=== PATIENT | female | born 1930 | race Asian ===

== ENCOUNTER 2016-07-13 23:29 | Inpatient (IN) | payer OTHER, MEDICAID ==
[~2016-07-13] VITALS: Ht 162.6 cm; Wt 61.2 kg
[2016-07-13 23:37] VITALS: BP 120/68; PULSE 76; RESP 18; TEMP 98.3; O2SAT 98
[2016-07-13] MEDS ORDERED: NACL 0.9% 1,000 ML IV ONE (23:53)
[2016-07-14] VITALS (8 sets, daily range): BP systolic 109–147; BP diastolic 47–82; PULSE 67–100; RESP 16–20; TEMP 96–98.1; O2SAT 94–100
[2016-07-14 01:06] LABS: BASOPHILS # (AUTO) 0.1 K/uL (0.0-0.2); BASOPHILS % (AUTO) 0.9 % (0.0-2.0); EOSINOPHILS # (AUTO) 0.1 K/uL (0.0-0.4); EOSINOPHILS % (AUTO) 0.4 % (0.0-4.0); HEMATOCRIT 33.3 % (36-48); HEMOGLOBIN 10.9 g/dL (12.0-16.0); LYMPHOCYTES # (AUTO) 0.8 K/uL (1.0-5.5); LYMPHOCYTES % (AUTO) 5.2 % (20.5-51.5); MEAN CORPUSCULAR HEMOGLOBIN 30 pg (27-31); MEAN CORPUSCULAR HGB CONC 33 % (32-36); MEAN CORPUSCULAR VOLUME 92 fL (79.0-98.0); MONOCYTES # (AUTO) 0.8 K/uL (0.0-1.0); MONOCYTES % (AUTO) 5.1 % (1.7-9.3); NEUTROPHILS # (AUTO) 13.6 K/uL (1.8-7.7); NEUTROPHILS % (AUTO) 88.4 % (40.0-70.0); PLATELET COUNT (AUTO) 517 K/uL (130-430); RED BLOOD CELL COUNT(AUTO) 3.62 MIL/uL (4.2-6.2); RED CELL DISTRIBUTION WIDTH 14.5 % (9.0-15.0); WHITE BLOOD COUNT (AUTO) 15.4 K/uL (4.8-10.8)
[2016-07-14 01:15] LABS: ANION GAP 12 (5-15); CALCIUM 8.9 mg/dL (8.4-11.0); CHLORIDE 93 mmol/L (98-107); CREATININE 2.57 mg/dL (0.55-1.30); GLUCOSE 240 mg/dL (70-99); POTASSIUM 3.2 mmol/L (3.5-5.1); SODIUM SERUM 135 mmol/L (136-145); UREA NITROGEN, BLOOD 48 mg/dL (8-21)
[2016-07-14 01:20] LABS: ALANINE AMINOTRANSFERASE 52 U/L (12-78); ALBUMIN 2.7 g/dL (3.4-4.8); ASPARTATE AMINOTRANSFERASE 30 U/L (10-37); TOTAL BILIRUBIN 0.3 mg/dL (0.0-1.0); TOTAL PROTEIN, SERUM 8.4 g/dL (6.4-8.3)
[2016-07-14] MEDS ORDERED: POLYETHYLENE GLYCOL 3350, 17 GM/ POWD.PACK GT PRN (02:45)
[2016-07-14] MEDS ORDERED: HYDROcodone/ACETAMIN 7.5-325 MG TAB PO PRN (02:45)
[2016-07-14] MEDS ORDERED: SENNOSIDES 8.6 MG TABLET GT PRN (02:45)
[2016-07-14] MEDS ORDERED: IPRATROPIUM/ALBUTEROL SULFATE 120 PUFFS/4 GM INH INH PRN (02:45)
[2016-07-14] MEDS ORDERED: INSULIN ASPART 100 UNITS/ML, 10 ML VIAL (NovoLOG) SUBCUT PRN (02:45)
[2016-07-14] MEDS ORDERED: ACETAMINOPHEN 325 MG TABLET GT PRN (02:45)
[2016-07-14] MEDS ORDERED: ONDANSETRON 4 MG ODT TAB GT PRN (02:45)
[2016-07-14] MEDS ORDERED: BISACODYL 10 MG/SUPPOSITORY RC PRN (02:45)
[2016-07-14] MEDS ORDERED: ATOR20TA64 GT (02:58)
[2016-07-14] MEDS ORDERED: IPRA4AER INH (02:58)
[2016-07-14] MEDS ORDERED: DULR10 RC (02:58)
[2016-07-14] MEDS ORDERED: HEPA500014 SUBCUT (02:58)
[2016-07-14] MEDS ORDERED: POLY17PO2 GT (02:58)
[2016-07-14] MEDS ORDERED: SITA50TA3 GT (02:58)
[2016-07-14] MEDS ORDERED: LEVO25TA7 GT (02:58)
[2016-07-14] MEDS ORDERED: ONDA4TAB22 GT (02:58)
[2016-07-14] MEDS ORDERED: CARV3.1246 PO (02:58)
[2016-07-14] MEDS ORDERED: ACET325T53 GT (02:58)
[2016-07-14] MEDS ORDERED: CEPH-568 PO (02:58)
[2016-07-14] MEDS ORDERED: SENN-153 GT (02:58)
[2016-07-14] MEDS ORDERED: HYDR-1115 PO (02:58)
[2016-07-14] MEDS ORDERED: SSNOVOLOG SUBCUT (02:58)
[2016-07-14] MEDS ORDERED: HYDR-551 PO (02:58)
[2016-07-14] MEDS ORDERED: DIPH25TA62 GT (02:58)
[2016-07-14] MEDS ORDERED: LEVOFLOXACIN 500 MG/D5W 100 ML IV ONE (03:00)
[2016-07-14] MEDS ORDERED: DIPHENHYDRAMINE HCL 12.5 MG/5 ML UDC GT PRN (03:30)
[2016-07-14] MEDS: LEVOTHYROXINE SODIUM 0.025 MG TABLET GT SCH (06:09)
[2016-07-14] MEDS ORDERED: DOCUSATE SODIUM 100 MG CAPSULE PO PRN (09:30)
[2016-07-14] MEDS ORDERED: POTASSIUM CHLORIDE 10 MEQ TAB.PRT.SR PO PRN (09:30)
[2016-07-14] MEDS ORDERED: LORazepam 2 MG/ML VIAL IVP PRN (09:30)
[2016-07-14] MEDS ORDERED: MAGNESIUM SULFATE 50 ML IV PRN (09:30)
[2016-07-14] MEDS ORDERED: ONDANSETRON HCL 4 MG/2 ML VIAL IVP PRN (09:30)
[2016-07-14] MEDS ORDERED: ACETAMINOPHEN 650 MG/20.3 ML UDC GT PRN (09:30)
[2016-07-14] MEDS: CARVEDILOL 3.125 MG TABLET (COREG) PO SCH ×2 (09:36→20:52)
[2016-07-14] MEDS: hydrALAZINE HCL 25 MG TABLET PO SCH ×3 (09:36→20:53)
[2016-07-14] MEDS: HEPARIN SODIUM,PORCINE 5000 UNITS/ML VIAL SUBCUT SCH ×2 (09:38→21:04)
[2016-07-14] MEDS ORDERED: DEXTROSE 50% JECT 50 ML DISP.SYRIN IVP PRN (10:00)
[2016-07-14] MEDS ORDERED: cefTRIAXone 1 GM in D5W 50 ML IV ONE (12:00)
[2016-07-14] MEDS ORDERED: IPRATROPIUM/ALBUTEROL SULFATE 3 ML AMPUL.NEB INH PRN (13:45)
[2016-07-14] MEDS: INSULIN ASPART 100 UNITS/ML, 10 ML VIAL (NovoLOG) SUBCUT PRN (17:47)
[2016-07-14] MEDS: ATORVASTATIN 20 MG TABLET GT SCH (20:50)
[2016-07-14] MEDS ORDERED: ZOLPIDEM TARTRATE 5 MG TABLET PO PRN (21:00)
[2016-07-14] MEDS ORDERED: HEPARIN SODIUM,PORCINE 5000 UNITS/ML VIAL SUBCUT SCH (21:00)
[2016-07-14] MEDS: BALSAM PERU/CASTOR OIL 60 GM OINT...G. TP SCH (21:04)
[2016-07-15] VITALS (8 sets, daily range): BP systolic 117–159; BP diastolic 53–86; PULSE 65–118; RESP 16–19; TEMP 96.8–98.6; O2SAT 97–100
[2016-07-15] MEDS: LEVOTHYROXINE SODIUM 0.025 MG TABLET GT SCH (06:09)
[2016-07-15] MEDS: INSULIN ASPART 100 UNITS/ML, 10 ML VIAL (NovoLOG) SUBCUT PRN ×4 (06:11→21:55)
[2016-07-15 07:37] LABS: BASOPHILS % (AUTO) 0.3 % (0.0-2.0); EOSINOPHILS # (AUTO) 0.1 K/uL (0.0-0.4); EOSINOPHILS % (AUTO) 0.7 % (0.0-4.0); HEMATOCRIT 29.7 % (36-48); HEMOGLOBIN 9.8 g/dL (12.0-16.0); LYMPHOCYTES % (AUTO) 7.1 % (20.5-51.5); MEAN CORPUSCULAR HEMOGLOBIN 30 pg (27-31); MEAN CORPUSCULAR HGB CONC 33 % (32-36); MEAN CORPUSCULAR VOLUME 92 fL (79.0-98.0); MONOCYTES # (AUTO) 1.1 K/uL (0.0-1.0); MONOCYTES % (AUTO) 7.6 % (1.7-9.3); NEUTROPHILS % (AUTO) 84.3 % (40.0-70.0); PLATELET COUNT (AUTO) 419 K/uL (130-430); RED BLOOD CELL COUNT(AUTO) 3.23 MIL/uL (4.2-6.2); RED CELL DISTRIBUTION WIDTH 14.5 % (9.0-15.0); WHITE BLOOD COUNT (AUTO) 14.2 K/uL (4.8-10.8)
[2016-07-15 07:40] LABS: ANION GAP 12 (5-15); CALCIUM 8.8 mg/dL (8.4-11.0); CHLORIDE 93 mmol/L (98-107); CREATININE 4.07 mg/dL (0.55-1.30); GLUCOSE 232 mg/dL (70-99); POTASSIUM 3.7 mmol/L (3.5-5.1); SODIUM SERUM 134 mmol/L (136-145); UREA NITROGEN, BLOOD 86 mg/dL (8-21)
[2016-07-15] MEDS ORDERED: cefTRIAXone 1 GM in D5W 50 ML IV SCH (09:00)
[2016-07-15] MEDS: hydrALAZINE HCL 25 MG TABLET PO SCH ×3 (09:57→21:49)
[2016-07-15] MEDS: CARVEDILOL 3.125 MG TABLET (COREG) PO SCH ×2 (10:00→21:50)
[2016-07-15] MEDS: HEPARIN SODIUM,PORCINE 5000 UNITS/ML VIAL SUBCUT SCH ×2 (10:03→21:53)
[2016-07-15] MEDS: BALSAM PERU/CASTOR OIL 60 GM OINT...G. TP SCH (10:04)
[2016-07-15] MEDS: VANCOMYCIN HCL 1,000 MG in NS 250 ML IV SCH (11:27)
[2016-07-15] MEDS: MUPIROCIN 2% TOPICAL OINTMENT 22 GM TP SCH ×2 (11:28→21:51)
[2016-07-15] MEDS: CEFEPIME 1 GM in D5W 50 ML IV SCH (13:43)
[2016-07-15] MEDS ORDERED: HEPARIN SODIUM,PORCINE 5000 UNITS/ML VIAL MC ONE ×2 (16:15→17:00)
[2016-07-15] MEDS: FLUCONAZOLE 100 mg/ NS 50 ML IV SCH (17:06)
[2016-07-15] MEDS: ATORVASTATIN 20 MG TABLET GT SCH (21:48)
[2016-07-16] VITALS (7 sets, daily range): BP systolic 131–165; BP diastolic 46–83; PULSE 64–82; RESP 17–20; TEMP 96.2–98.5; O2SAT 96–100; Ht 162.6 cm; Wt 61.2 kg
[2016-07-16] MEDS: INSULIN ASPART 100 UNITS/ML, 10 ML VIAL (NovoLOG) SUBCUT PRN ×3 (06:09→18:08)
[2016-07-16] MEDS: LEVOTHYROXINE SODIUM 0.025 MG TABLET GT SCH (06:10)
[2016-07-16 07:49] LABS: HEMATOCRIT 32.7 % (36-48); HEMOGLOBIN 10.5 g/dL (12.0-16.0); MEAN CORPUSCULAR HEMOGLOBIN 30 pg (27-31); MEAN CORPUSCULAR HGB CONC 32 % (32-36); MEAN CORPUSCULAR VOLUME 93 fL (79.0-98.0); PLATELET COUNT (AUTO) 403 K/uL (130-430); RED BLOOD CELL COUNT(AUTO) 3.52 MIL/uL (4.2-6.2); RED CELL DISTRIBUTION WIDTH 14.2 % (9.0-15.0)
[2016-07-16 08:18] LABS: ANION GAP 10 (5-15); CALCIUM 9.2 mg/dL (8.4-11.0); CHLORIDE 108 mmol/L (98-107); CREATININE 2.95 mg/dL (0.55-1.30); GLUCOSE 249 mg/dL (70-99); POTASSIUM 4.1 mmol/L (3.5-5.1); SODIUM SERUM 144 mmol/L (136-145); UREA NITROGEN, BLOOD 48 mg/dL (8-21)
[2016-07-16 08:35] LABS: WHITE BLOOD COUNT (AUTO) 32.8 K/uL (4.8-10.8)
[2016-07-16] MEDS: hydrALAZINE HCL 25 MG TABLET PO SCH ×3 (09:15→21:34)
[2016-07-16] MEDS: MUPIROCIN 2% TOPICAL OINTMENT 22 GM TP SCH ×2 (09:15→21:38)
[2016-07-16] MEDS: CARVEDILOL 3.125 MG TABLET (COREG) PO SCH ×2 (09:15→21:35)
[2016-07-16] MEDS: BALSAM PERU/CASTOR OIL 60 GM OINT...G. TP SCH (09:16)
[2016-07-16] MEDS: HEPARIN SODIUM,PORCINE 5000 UNITS/ML VIAL SUBCUT SCH ×2 (09:17→21:00)
[2016-07-16 09:52] LABS: ATYPICAL LYMPHOCYTES % 1 % (0-0); BAND % (MANUAL) 4 % (0-6); LYMPHOCYTES % (MANUAL) 6 % (20-46); MONOCYTES % (MANUAL) 6 % (0-11)
[2016-07-16 09:53] LABS: BASOPHILS % (MANUAL) 0 % (0-2); EOSINOPHILS % (MANUAL) 1 % (0-7)
[2016-07-16] MEDS: CEFEPIME 1 GM in D5W 50 ML IV SCH (11:50)
[2016-07-16] MEDS: FLUCONAZOLE 100 mg/ NS 50 ML IV SCH (12:34)
[2016-07-16] MEDS: PIPERACILLIN/TAZO 2.25G/DEX-IS 50 ML IV SCH ×2 (14:22→17:16)
[2016-07-16] MEDS ORDERED: IOHEXOL 350 mgI/mL, 150 ML INFUS..BTL IV ONE (15:40)
[2016-07-16] MEDS: EPOETIN ALFA 10,000 UNITS/ML VIAL SUBCUT SCH (17:16)
[2016-07-16] MEDS ORDERED: D5/0.45 NS 1,000 ML IV SCH (18:45)
[2016-07-16] MEDS: LACTOBACILLUS RHAMNOSUS GG 1 CAP CAPSULE PO SCH (21:34)
[2016-07-16] MEDS: ATORVASTATIN 20 MG TABLET GT SCH (21:35)
[2016-07-17] MEDS: PIPERACILLIN/TAZO 2.25G/DEX-IS 50 ML IV SCH ×4 (00:04→18:00)
[2016-07-17] MEDS: D5/0.45 NS 1,000 ML IV SCH (00:04)
[2016-07-17 04:10] VITALS: BP 139/52; PULSE 68; RESP 18; TEMP 97.1; O2SAT 97
[2016-07-17] MEDS: LEVOTHYROXINE SODIUM 0.025 MG TABLET GT SCH (05:06)
[2016-07-17 05:21] LABS: BASOPHILS % (AUTO) 0.2 % (0.0-2.0); EOSINOPHILS # (AUTO) 0.2 K/uL (0.0-0.4); EOSINOPHILS % (AUTO) 1.2 % (0.0-4.0); HEMATOCRIT 30.6 % (36-48); HEMOGLOBIN 9.9 g/dL (12.0-16.0); LYMPHOCYTES # (AUTO) 0.6 K/uL (1.0-5.5); LYMPHOCYTES % (AUTO) 3.5 % (20.5-51.5); MEAN CORPUSCULAR HEMOGLOBIN 30 pg (27-31); MEAN CORPUSCULAR HGB CONC 32 % (32-36); MEAN CORPUSCULAR VOLUME 94 fL (79.0-98.0); MONOCYTES # (AUTO) 0.9 K/uL (0.0-1.0); MONOCYTES % (AUTO) 5.4 % (1.7-9.3); NEUTROPHILS % (AUTO) 89.7 % (40.0-70.0); PLATELET COUNT (AUTO) 398 K/uL (130-430); RED BLOOD CELL COUNT(AUTO) 3.26 MIL/uL (4.2-6.2); WHITE BLOOD COUNT (AUTO) 16.7 K/uL (4.8-10.8)
[2016-07-17 05:38] LABS: ANION GAP 9 (5-15); CALCIUM 8.6 mg/dL (8.4-11.0); CHLORIDE 105 mmol/L (98-107); CREATININE 3.58 mg/dL (0.55-1.30); GLUCOSE 195 mg/dL (70-99); POTASSIUM 4.1 mmol/L (3.5-5.1); SODIUM SERUM 141 mmol/L (136-145); UREA NITROGEN, BLOOD 67 mg/dL (8-21)
[2016-07-17] MEDS: INSULIN ASPART 100 UNITS/ML, 10 ML VIAL (NovoLOG) SUBCUT PRN ×2 (05:39→21:50)
[2016-07-17 05:43] LABS: INR 0.9 (0.8-1.2)
[2016-07-17] MEDS: hydrALAZINE HCL 25 MG TABLET PO SCH ×4 (08:36→21:43)
[2016-07-17] MEDS: CARVEDILOL 3.125 MG TABLET (COREG) PO SCH ×3 (08:36→21:44)
[2016-07-17] MEDS: LACTOBACILLUS RHAMNOSUS GG 1 CAP CAPSULE PO SCH ×2 (08:37→21:44)
[2016-07-17] MEDS: HEPARIN SODIUM,PORCINE 5000 UNITS/ML VIAL SUBCUT SCH ×2 (09:00→21:54)
[2016-07-17 09:31] VITALS: BP 170/82; PULSE 68; RESP 18; TEMP 99
[2016-07-17] MEDS ORDERED: POLYMYXIN 500,000/BACIT.10,000 UNITS in NS IRR 1 L IR ONE (10:42)
[2016-07-17] MEDS ORDERED: LR 1,000 ML IV ONE (11:27)
[2016-07-17] MEDS ORDERED: ONDANSETRON HCL 4 MG/2 ML VIAL IVP PRN ×2 (11:30)
[2016-07-17] MEDS ORDERED: ePHEDrine sulfate 50 MG/ML VIAL IVP PRN (11:30)
[2016-07-17] MEDS ORDERED: NALBUPHINE HCL 10 MG/ML AMP IVP PRN (11:30)
[2016-07-17] MEDS ORDERED: fentaNYL CITRATE/PF 100 MCG/2 ML AMP IVP PRN (11:30)
[2016-07-17] MEDS ORDERED: NALOXONE HCL 0.4 MG/ML AMP (NARCAN) IVP PRN (11:30)
[2016-07-17] MEDS ORDERED: NACL 0.9% 1,000 ML IV SCH (11:45)
[2016-07-17 12:08] LABS: HEPATITIS A AB, IgM Negative (Negative); HEPATITIS B CORE AB, IgM Negative (Negative); HEPATITIS B SURFACE AG Negative (Negative)
[2016-07-17 12:23] VITALS: BP 134/81; PULSE 76; RESP 21; TEMP 98.4; O2SAT 98
[2016-07-17] MEDS ORDERED: ONDANSETRON HCL 4 MG/2 ML VIAL ONE (14:00)
[2016-07-17] MEDS ORDERED: NS 1000 ML BAG IV ONE (14:00)
[2016-07-17] MEDS ORDERED: NS IRRIG SOLN 1000 ML IR ONE (14:00)
[2016-07-17] MEDS ORDERED: THROMBIN (BOVINE) 5000 UNITS/ VIAL TP ONE (14:00)
[2016-07-17] MEDS: DIPHENHYDRAMINE INJ 50 MG/ML VIAL IVP PRN ×2 (14:53→22:40)
[2016-07-17] MEDS: BALSAM PERU/CASTOR OIL 60 GM OINT...G. TP SCH (15:04)
[2016-07-17] MEDS: FLUCONAZOLE 100 mg/ NS 50 ML IV SCH (15:05)
[2016-07-17] MEDS: MUPIROCIN 2% TOPICAL OINTMENT 22 GM TP SCH ×2 (15:05→21:45)
[2016-07-17 19:00] VITALS: BP 139/85; PULSE 74; RESP 16; TEMP 97.3; O2SAT 96
[2016-07-17 20:00] VITALS: BP 139/85; PULSE 74; RESP 16; TEMP 97.3; O2SAT 96
[2016-07-17] MEDS: ATORVASTATIN 20 MG TABLET GT SCH (21:41)
[2016-07-17] MEDS: MORPHINE 2 MG/ML INJ. SYRINGE IVP PRN (22:39)
[2016-07-18] VITALS (8 sets, daily range): BP systolic 98–172; BP diastolic 46–85; PULSE 75–99; RESP 16–20; TEMP 97.9–98.7; O2SAT 93–99
[2016-07-18] MEDS: PIPERACILLIN/TAZO 2.25G/DEX-IS 50 ML IV SCH ×2 (00:51→06:03)
[2016-07-18] MEDS: D5/0.45 NS 1,000 ML IV SCH (02:40)
[2016-07-18] MEDS: LEVOTHYROXINE SODIUM 0.025 MG TABLET GT SCH (06:04)
[2016-07-18] MEDS: INSULIN ASPART 100 UNITS/ML, 10 ML VIAL (NovoLOG) SUBCUT PRN ×4 (06:08→22:28)
[2016-07-18 07:39] LABS: BASOPHILS % (AUTO) 0.1 % (0.0-2.0); EOSINOPHILS # (AUTO) 0.1 K/uL (0.0-0.4); EOSINOPHILS % (AUTO) 0.8 % (0.0-4.0); HEMATOCRIT 24.5 % (36-48); HEMOGLOBIN 8.2 g/dL (12.0-16.0); LYMPHOCYTES # (AUTO) 0.6 K/uL (1.0-5.5); LYMPHOCYTES % (AUTO) 3.5 % (20.5-51.5); MEAN CORPUSCULAR HEMOGLOBIN 30 pg (27-31); MEAN CORPUSCULAR HGB CONC 33 % (32-36); MEAN CORPUSCULAR VOLUME 90 fL (79.0-98.0); MONOCYTES # (AUTO) 0.9 K/uL (0.0-1.0); MONOCYTES % (AUTO) 5.5 % (1.7-9.3); NEUTROPHILS % (AUTO) 90.1 % (40.0-70.0); PLATELET COUNT (AUTO) 361 K/uL (130-430); RED BLOOD CELL COUNT(AUTO) 2.72 MIL/uL (4.2-6.2); RED CELL DISTRIBUTION WIDTH 14.8 % (9.0-15.0); WHITE BLOOD COUNT (AUTO) 16.6 K/uL (4.8-10.8)
[2016-07-18 08:25] LABS: ANION GAP 11 (5-15); CALCIUM 8.3 mg/dL (8.4-11.0); CHLORIDE 100 mmol/L (98-107); CREATININE 3.62 mg/dL (0.55-1.30); GLUCOSE 315 mg/dL (70-99); POTASSIUM 3.8 mmol/L (3.5-5.1); SODIUM SERUM 136 mmol/L (136-145); UREA NITROGEN, BLOOD 48 mg/dL (8-21)
[2016-07-18] MEDS: LACTOBACILLUS RHAMNOSUS GG 1 CAP CAPSULE PO SCH ×2 (09:06→21:57)
[2016-07-18] MEDS: BALSAM PERU/CASTOR OIL 60 GM OINT...G. TP SCH (09:07)
[2016-07-18] MEDS: MUPIROCIN 2% TOPICAL OINTMENT 22 GM TP SCH ×2 (09:07→22:15)
[2016-07-18] MEDS: CARVEDILOL 3.125 MG TABLET (COREG) PO SCH ×2 (09:11→22:02)
[2016-07-18] MEDS: hydrALAZINE HCL 25 MG TABLET PO SCH ×3 (09:11→22:02)
[2016-07-18] MEDS: HEPARIN SODIUM,PORCINE 5000 UNITS/ML VIAL SUBCUT SCH ×2 (09:13→22:01)
[2016-07-18] MEDS: VANCOMYCIN HCL 1,000 MG in NS 250 ML IV SCH (10:55)
[2016-07-18] MEDS: AMPICILLIN SODIUM/SULBACTAM NA 1.5 GM in NS 50 ML IV SCH ×2 (13:35→21:57)
[2016-07-18] MEDS: EPOETIN ALFA 10,000 UNITS/ML VIAL SUBCUT SCH (17:24)
[2016-07-18] MEDS: MORPHINE 2 MG/ML INJ. SYRINGE IVP PRN ×2 (17:58→22:38)
[2016-07-18] MEDS: ATORVASTATIN 20 MG TABLET GT SCH (21:57)
[2016-07-19] VITALS (7 sets, daily range): BP systolic 115–148; BP diastolic 49–66; PULSE 73–82; RESP 16–20; TEMP 97.3–98.2; O2SAT 98–100
[2016-07-19] MEDS: INSULIN ASPART 100 UNITS/ML, 10 ML VIAL (NovoLOG) SUBCUT PRN ×3 (06:23→16:42)
[2016-07-19] MEDS: LEVOTHYROXINE SODIUM 0.025 MG TABLET GT SCH (06:23)
[2016-07-19 06:43] LABS: ANION GAP 12 (5-15); CALCIUM 8.5 mg/dL (8.4-11.0); CHLORIDE 100 mmol/L (98-107); CREATININE 4.41 mg/dL (0.55-1.30); GLUCOSE 235 mg/dL (70-99); SODIUM SERUM 137 mmol/L (136-145); UREA NITROGEN, BLOOD 64 mg/dL (8-21)
[2016-07-19 07:40] LABS: BASOPHILS % (AUTO) 0.1 % (0.0-2.0); EOSINOPHILS # (AUTO) 0.2 K/uL (0.0-0.4); EOSINOPHILS % (AUTO) 1.2 % (0.0-4.0); HEMATOCRIT 26.3 % (36-48); HEMOGLOBIN 8.3 g/dL (12.0-16.0); LYMPHOCYTES # (AUTO) 0.8 K/uL (1.0-5.5); MEAN CORPUSCULAR HEMOGLOBIN 29 pg (27-31); MEAN CORPUSCULAR HGB CONC 32 % (32-36); MONOCYTES # (AUTO) 1.2 K/uL (0.0-1.0); NEUTROPHILS # (AUTO) 13.4 K/uL (1.8-7.7); PLATELET COUNT (AUTO) 356 K/uL (130-430); RED BLOOD CELL COUNT(AUTO) 2.84 MIL/uL (4.2-6.2); RED CELL DISTRIBUTION WIDTH 14.9 % (9.0-15.0); WHITE BLOOD COUNT (AUTO) 15.6 K/uL (4.8-10.8)
[2016-07-19 07:47] LABS: MEAN CORPUSCULAR VOLUME 93 fL (79.0-98.0)
[2016-07-19 07:48] LABS: NEUTROPHILS % (AUTO) 85.7 % (40.0-70.0)
[2016-07-19] MEDS: BALSAM PERU/CASTOR OIL 60 GM OINT...G. TP SCH (09:00)
[2016-07-19] MEDS: AMPICILLIN SODIUM/SULBACTAM NA 1.5 GM in NS 50 ML IV SCH ×2 (09:16→21:51)
[2016-07-19] MEDS: LACTOBACILLUS RHAMNOSUS GG 1 CAP CAPSULE PO SCH ×2 (09:16→21:54)
[2016-07-19] MEDS: CARVEDILOL 3.125 MG TABLET (COREG) PO SCH ×2 (09:19→21:53)
[2016-07-19] MEDS: MUPIROCIN 2% TOPICAL OINTMENT 22 GM TP SCH ×2 (09:20→21:54)
[2016-07-19] MEDS: hydrALAZINE HCL 25 MG TABLET PO SCH ×3 (09:20→21:53)
[2016-07-19] MEDS: HEPARIN SODIUM,PORCINE 5000 UNITS/ML VIAL SUBCUT SCH ×2 (09:22→21:57)
[2016-07-19] MEDS: ATORVASTATIN 20 MG TABLET GT SCH (21:52)
[2016-07-20] VITALS (12 sets, daily range): BP systolic 118–169; BP diastolic 40–88; PULSE 66–84; RESP 16–20; TEMP 96.7–97.9; O2SAT 98–100
[2016-07-20] MEDS: LEVOTHYROXINE SODIUM 0.025 MG TABLET GT SCH (06:26)
[2016-07-20 07:26] LABS: EOSINOPHILS # (AUTO) 0.2 K/uL (0.0-0.4); HEMOGLOBIN 7.9 g/dL (12.0-16.0)
[2016-07-20 07:44] LABS: ALANINE AMINOTRANSFERASE 67 U/L (12-78); ALBUMIN 2.1 g/dL (3.4-4.8); ANION GAP 12 (5-15); ASPARTATE AMINOTRANSFERASE 48 U/L (10-37); CALCIUM 8.3 mg/dL (8.4-11.0); CHLORIDE 99 mmol/L (98-107); CREATININE 5.28 mg/dL (0.55-1.30); GLUCOSE 141 mg/dL (70-99); PHOSPHORUS 4.5 mg/dL (2.7-4.5); SODIUM SERUM 136 mmol/L (136-145); TOTAL BILIRUBIN 0.3 mg/dL (0.0-1.0); TOTAL PROTEIN, SERUM 7.2 g/dL (6.4-8.3); UREA NITROGEN, BLOOD 79 mg/dL (8-21)
[2016-07-20 07:46] LABS: BASOPHILS % (AUTO) 0.3 % (0.0-2.0); EOSINOPHILS % (AUTO) 1.6 % (0.0-4.0); HEMATOCRIT 24.7 % (36-48); LYMPHOCYTES # (AUTO) 0.8 K/uL (1.0-5.5); LYMPHOCYTES % (AUTO) 5.3 % (20.5-51.5); MEAN CORPUSCULAR HEMOGLOBIN 30 pg (27-31); MEAN CORPUSCULAR HGB CONC 32 % (32-36); MEAN CORPUSCULAR VOLUME 93 fL (79.0-98.0); MONOCYTES # (AUTO) 1.2 K/uL (0.0-1.0); MONOCYTES % (AUTO) 8.7 % (1.7-9.3); NEUTROPHILS % (AUTO) 84.1 % (40.0-70.0); PLATELET COUNT (AUTO) 310 K/uL (130-430); RED BLOOD CELL COUNT(AUTO) 2.67 MIL/uL (4.2-6.2); RED CELL DISTRIBUTION WIDTH 14.8 % (9.0-15.0); WHITE BLOOD COUNT (AUTO) 14.2 K/uL (4.8-10.8)
[2016-07-20] MEDS: AMPICILLIN SODIUM/SULBACTAM NA 1.5 GM in NS 50 ML IV SCH ×2 (08:34→21:06)
[2016-07-20] MEDS: hydrALAZINE HCL 25 MG TABLET PO SCH ×3 (09:00→21:07)
[2016-07-20] MEDS: LACTOBACILLUS RHAMNOSUS GG 1 CAP CAPSULE PO SCH ×2 (09:00→21:08)
[2016-07-20] MEDS: HEPARIN SODIUM,PORCINE 5000 UNITS/ML VIAL SUBCUT SCH ×2 (09:00→21:13)
[2016-07-20] MEDS: CARVEDILOL 3.125 MG TABLET (COREG) PO SCH ×2 (09:00→21:07)
[2016-07-20] MEDS: MUPIROCIN 2% TOPICAL OINTMENT 22 GM TP SCH ×2 (09:01→21:08)
[2016-07-20] MEDS: BALSAM PERU/CASTOR OIL 60 GM OINT...G. TP SCH (11:29)
[2016-07-20] MEDS ORDERED: MIDAZOLAM HCL 5 MG/5 ML VIAL ONE (14:00)
[2016-07-20] MEDS ORDERED: PROTAMINE SULFATE 50MG/5 ML VIAL IV ONE (14:00)
[2016-07-20] MEDS ORDERED: PROPOFOL 200MG/ 20ML VIAL (DIPRIVAN) IV ONE (14:00)
[2016-07-20] MEDS ORDERED: THROMBIN (BOVINE) 5000 UNITS/ VIAL TP ONE (14:00)
[2016-07-20] MEDS ORDERED: NS IRRIG SOLN 1000 ML IR ONE (14:00)
[2016-07-20] MEDS ORDERED: LIDOCAINE 1% 10 MG/ML, 20 ML MDV ONE (14:00)
[2016-07-20] MEDS ORDERED: HEPARIN SODIUM, PORCINE 10,000 UNITS/ 10 ML VIAL ONE (14:00)
[2016-07-20] MEDS ORDERED: NS 1000 ML BAG IV ONE (14:00)
[2016-07-20] MEDS ORDERED: NS 100 ML BAG IV ONE (14:00)
[2016-07-20] MEDS ORDERED: LABETALOL 100 MG/ 20ML VIAL ONE (14:00)
[2016-07-20] MEDS ORDERED: NACL 0.9% 1,000 ML IV SCH (14:06)
[2016-07-20] MEDS ORDERED: ONDANSETRON HCL 4 MG/2 ML VIAL IVP PRN (14:15)
[2016-07-20] MEDS ORDERED: ASPIRIN 325 MG TABLET (ECOTRIN) PO ONE (14:15)
[2016-07-20] MEDS: EPOETIN ALFA 4,000 UNITS/ML VIAL SUBCUT SCH (17:34)
[2016-07-20] MEDS: ATORVASTATIN 20 MG TABLET GT SCH (21:05)
[2016-07-20] MEDS: INSULIN ASPART 100 UNITS/ML, 10 ML VIAL (NovoLOG) SUBCUT PRN (21:13)
[2016-07-21] VITALS: BP 127/55; PULSE 73; RESP 17; TEMP 98.4; O2SAT 100
[2016-07-21 04:15] VITALS: BP 140/61; PULSE 80; RESP 17; TEMP 97.8; O2SAT 97
[2016-07-21] MEDS: LEVOTHYROXINE SODIUM 0.025 MG TABLET GT SCH (06:51)
[2016-07-21 08:00] LABS: BASOPHILS % (AUTO) 0.1 % (0.0-2.0); EOSINOPHILS # (AUTO) 0.1 K/uL (0.0-0.4); EOSINOPHILS % (AUTO) 0.7 % (0.0-4.0); HEMATOCRIT 31.5 % (36-48); HEMOGLOBIN 10.7 g/dL (12.0-16.0); LYMPHOCYTES # (AUTO) 0.5 K/uL (1.0-5.5); LYMPHOCYTES % (AUTO) 3.3 % (20.5-51.5); MEAN CORPUSCULAR HEMOGLOBIN 31 pg (27-31); MEAN CORPUSCULAR HGB CONC 34 % (32-36); MEAN CORPUSCULAR VOLUME 90 fL (79.0-98.0); MONOCYTES # (AUTO) 1.2 K/uL (0.0-1.0); MONOCYTES % (AUTO) 7.3 % (1.7-9.3); NEUTROPHILS # (AUTO) 14.1 K/uL (1.8-7.7); NEUTROPHILS % (AUTO) 88.6 % (40.0-70.0); PLATELET COUNT (AUTO) 322 K/uL (130-430); RED BLOOD CELL COUNT(AUTO) 3.49 MIL/uL (4.2-6.2); RED CELL DISTRIBUTION WIDTH 14.6 % (9.0-15.0); WHITE BLOOD COUNT (AUTO) 15.9 K/uL (4.8-10.8)
[2016-07-21 08:19] LABS: ALANINE AMINOTRANSFERASE 75 U/L (12-78); ALBUMIN 2.1 g/dL (3.4-4.8); ANION GAP 14 (5-15); ASPARTATE AMINOTRANSFERASE 70 U/L (10-37); CALCIUM 8.5 mg/dL (8.4-11.0); CHLORIDE 98 mmol/L (98-107); CREATININE 3.39 mg/dL (0.55-1.30); GLUCOSE 187 mg/dL (70-99); PHOSPHORUS 3.2 mg/dL (2.7-4.5); POTASSIUM 4.2 mmol/L (3.5-5.1); SODIUM SERUM 135 mmol/L (136-145); TOTAL BILIRUBIN 0.5 mg/dL (0.0-1.0); TOTAL PROTEIN, SERUM 7.9 g/dL (6.4-8.3); UREA NITROGEN, BLOOD 40 mg/dL (8-21)
[2016-07-21] MEDS: LACTOBACILLUS RHAMNOSUS GG 1 CAP CAPSULE PO SCH (09:14)
[2016-07-21] MEDS: hydrALAZINE HCL 25 MG TABLET PO SCH ×3 (09:15→22:20)
[2016-07-21] MEDS: CARVEDILOL 3.125 MG TABLET (COREG) PO SCH ×2 (09:15→22:21)
[2016-07-21] MEDS: BALSAM PERU/CASTOR OIL 60 GM OINT...G. TP SCH (09:16)
[2016-07-21] MEDS: AMPICILLIN SODIUM/SULBACTAM NA 1.5 GM in NS 50 ML IV SCH ×2 (09:16→20:57)
[2016-07-21] MEDS: MUPIROCIN 2% TOPICAL OINTMENT 22 GM TP SCH ×2 (09:17→22:29)
[2016-07-21] MEDS: HEPARIN SODIUM,PORCINE 5000 UNITS/ML VIAL SUBCUT SCH ×2 (09:19→22:23)
[2016-07-21] MEDS: VANCOMYCIN HCL 1,000 MG in NS 250 ML IV SCH (11:17)
[2016-07-21] MEDS: INSULIN ASPART 100 UNITS/ML, 10 ML VIAL (NovoLOG) SUBCUT PRN ×3 (11:23→22:30)
[2016-07-21 12:27] VITALS: BP 123/48; PULSE 78; RESP 17; TEMP 98.2; O2SAT 98
[2016-07-21 16:48] VITALS: BP 154/58; PULSE 79; RESP 20; TEMP 97.3; O2SAT 98
[2016-07-21 20:00] VITALS: BP 135/58; PULSE 78; RESP 18; TEMP 98.2; O2SAT 97
[2016-07-21] MEDS: ATORVASTATIN 20 MG TABLET GT SCH (22:20)
[2016-07-22 00:16] VITALS: BP 131/46; PULSE 76; RESP 19; TEMP 98.3; O2SAT 98
[2016-07-22 03:33] VITALS: BP 138/51; PULSE 81; RESP 19; TEMP 98.8; O2SAT 93
[2016-07-22] MEDS: LEVOTHYROXINE SODIUM 0.025 MG TABLET GT SCH (06:27)
[2016-07-22] MEDS: INSULIN ASPART 100 UNITS/ML, 10 ML VIAL (NovoLOG) SUBCUT PRN ×4 (06:29→21:37)
[2016-07-22 07:23] LABS: BASOPHILS # (AUTO) 0.1 K/uL (0.0-0.2); BASOPHILS % (AUTO) 0.4 % (0.0-2.0); EOSINOPHILS # (AUTO) 0.1 K/uL (0.0-0.4); LYMPHOCYTES # (AUTO) 0.7 K/uL (1.0-5.5); LYMPHOCYTES % (AUTO) 5.1 % (20.5-51.5); MEAN CORPUSCULAR HEMOGLOBIN 31 pg (27-31); MEAN CORPUSCULAR HGB CONC 33 % (32-36); MEAN CORPUSCULAR VOLUME 92 fL (79.0-98.0); MONOCYTES % (AUTO) 7.6 % (1.7-9.3); NEUTROPHILS # (AUTO) 10.9 K/uL (1.8-7.7); NEUTROPHILS % (AUTO) 85.9 % (40.0-70.0); PLATELET COUNT (AUTO) 270 K/uL (130-430); RED BLOOD CELL COUNT(AUTO) 3.27 MIL/uL (4.2-6.2); RED CELL DISTRIBUTION WIDTH 14.2 % (9.0-15.0); WHITE BLOOD COUNT (AUTO) 12.8 K/uL (4.8-10.8)
[2016-07-22 07:28] LABS: ANION GAP 13 (5-15); CALCIUM 8.1 mg/dL (8.4-11.0); CHLORIDE 100 mmol/L (98-107); CREATININE 4.28 mg/dL (0.55-1.30); GLUCOSE 225 mg/dL (70-99); POTASSIUM 3.7 mmol/L (3.5-5.1); SODIUM SERUM 137 mmol/L (136-145); UREA NITROGEN, BLOOD 51 mg/dL (8-21)
[2016-07-22 08:00] VITALS: BP 131/61; PULSE 83; RESP 20; TEMP 98.5; O2SAT 100
[2016-07-22] MEDS: CARVEDILOL 3.125 MG TABLET (COREG) PO SCH ×2 (08:44→21:27)
[2016-07-22] MEDS: hydrALAZINE HCL 25 MG TABLET PO SCH ×3 (08:44→21:27)
[2016-07-22] MEDS: HEPARIN SODIUM,PORCINE 5000 UNITS/ML VIAL SUBCUT SCH ×2 (08:45→21:38)
[2016-07-22] MEDS: AMPICILLIN SODIUM/SULBACTAM NA 1.5 GM in NS 50 ML IV SCH ×2 (08:54→21:41)
[2016-07-22] MEDS: MUPIROCIN 2% TOPICAL OINTMENT 22 GM TP SCH ×2 (08:55→21:39)
[2016-07-22] MEDS: BALSAM PERU/CASTOR OIL 60 GM OINT...G. TP SCH (08:55)
[2016-07-22] MEDS: MORPHINE 2 MG/ML INJ. SYRINGE IVP PRN (10:09)
[2016-07-22 12:00] VITALS: BP 121/53; PULSE 87; RESP 22; TEMP 98; O2SAT 97
[2016-07-22 16:11] VITALS: BP 134/58; PULSE 88; RESP 17; TEMP 98; O2SAT 97
[2016-07-22] MEDS: EPOETIN ALFA 4,000 UNITS/ML VIAL SUBCUT SCH (16:45)
[2016-07-22 19:55] VITALS: BP 160/77; PULSE 89; RESP 14; TEMP 97.6; O2SAT 99
[2016-07-22] MEDS: ATORVASTATIN 20 MG TABLET GT SCH (21:26)
[2016-07-23 00:52] VITALS: BP 109/42; PULSE 79; RESP 17; TEMP 97.7; O2SAT 97
[2016-07-23 03:37] VITALS: BP 126/58; PULSE 76; RESP 19; TEMP 97.1; O2SAT 99
[2016-07-23] MEDS: LEVOTHYROXINE SODIUM 0.025 MG TABLET GT SCH (06:11)
[2016-07-23] MEDS: INSULIN ASPART 100 UNITS/ML, 10 ML VIAL (NovoLOG) SUBCUT PRN ×2 (06:23→11:20)
[2016-07-23 07:21] LABS: ANION GAP 9 (5-15); CALCIUM 8.3 mg/dL (8.4-11.0); CHLORIDE 99 mmol/L (98-107); CREATININE 2.96 mg/dL (0.55-1.30); GLUCOSE 188 mg/dL (70-99); POTASSIUM 3.5 mmol/L (3.5-5.1); SODIUM SERUM 136 mmol/L (136-145); UREA NITROGEN, BLOOD 31 mg/dL (8-21)
[2016-07-23 07:25] VITALS: BP 126/58; PULSE 79
[2016-07-23 07:26] LABS: BASOPHILS % (AUTO) 0.2 % (0.0-2.0); EOSINOPHILS # (AUTO) 0.2 K/uL (0.0-0.4); EOSINOPHILS % (AUTO) 1.8 % (0.0-4.0); HEMATOCRIT 28.7 % (36-48); HEMOGLOBIN 9.6 g/dL (12.0-16.0); LYMPHOCYTES # (AUTO) 0.7 K/uL (1.0-5.5); LYMPHOCYTES % (AUTO) 6.4 % (20.5-51.5); MEAN CORPUSCULAR HEMOGLOBIN 30 pg (27-31); MEAN CORPUSCULAR HGB CONC 34 % (32-36); MEAN CORPUSCULAR VOLUME 91 fL (79.0-98.0); MONOCYTES # (AUTO) 1.2 K/uL (0.0-1.0); MONOCYTES % (AUTO) 10.2 % (1.7-9.3); NEUTROPHILS # (AUTO) 9.6 K/uL (1.8-7.7); NEUTROPHILS % (AUTO) 81.4 % (40.0-70.0); PLATELET COUNT (AUTO) 342 K/uL (130-430); RED BLOOD CELL COUNT(AUTO) 3.17 MIL/uL (4.2-6.2); RED CELL DISTRIBUTION WIDTH 14.3 % (9.0-15.0); WHITE BLOOD COUNT (AUTO) 11.7 K/uL (4.8-10.8)
[2016-07-23] MEDS: hydrALAZINE HCL 25 MG TABLET PO SCH ×2 (08:43→15:00)
[2016-07-23] MEDS: CARVEDILOL 3.125 MG TABLET (COREG) PO SCH (08:43)
[2016-07-23] MEDS: AMPICILLIN SODIUM/SULBACTAM NA 1.5 GM in NS 50 ML IV SCH (08:44)
[2016-07-23] MEDS: BALSAM PERU/CASTOR OIL 60 GM OINT...G. TP SCH (08:45)
[2016-07-23] MEDS: MUPIROCIN 2% TOPICAL OINTMENT 22 GM TP SCH (08:45)
[2016-07-23] MEDS: HEPARIN SODIUM,PORCINE 5000 UNITS/ML VIAL SUBCUT SCH (08:55)
[2016-07-23 09:41] VITALS: BP 135/49; PULSE 76; RESP 24; TEMP 98.7; O2SAT 98
[2016-07-23 12:36] VITALS: BP 100/49; PULSE 78; RESP 16; TEMP 98.4; O2SAT 97
[2016-07-23 16:00] VITALS: BP 120/46; PULSE 78; RESP 21; TEMP 98.2; O2SAT 98
[2016-07-23] MEDS ORDERED: AMOXICILLIN 500 MG CAPSULE PO SCH (21:00)
[2016-07-24] MEDS ORDERED: VANCOMYCIN HCL 1,000 MG in NS 250 ML IV SCH (11:00)
== END 2016-07-23 17:05 | DRG 853 ==
LOC: SED 23:29 → SMU 07-14 02:42
PROVIDERS: ADMIT General Practice; ATTEND General Practice
PROC: 5A1D60Z (ICD-10-PCS; 2016-07-15)
PROC: 0Y6N0ZC Detachment at Left Foot, Partial 3rd Ray, Open Approach (ICD-10-PCS; 2016-07-17)
PROC: 0Y6N0ZD Detachment at Left Foot, Partial 4th Ray, Open Approach (ICD-10-PCS; 2016-07-17)
PROC: 0Y6N0ZF Detachment at Left Foot, Partial 5th Ray, Open Approach (ICD-10-PCS; 2016-07-17)
PROC: 04JY0ZZ Inspection of Lower Artery, Open Approach (ICD-10-PCS; 2016-07-17)
PROC: 0Y6N0Z9 Detachment at Left Foot, Partial 1st Ray, Open Approach (ICD-10-PCS; principal; 2016-07-17 10:30)
PROC: 0Y6N0ZB Detachment at Left Foot, Partial 2nd Ray, Open Approach (ICD-10-PCS; 2016-07-17 10:30)
PROC: 03170KD Bypass Right Brachial Artery to Upper Arm Vein with Nonautologous Tissue Substitute, Open Approach (ICD-10-PCS; 2016-07-20)
PROC: 02H633Z Insertion of Infusion Device into Right Atrium, Percutaneous Approach (ICD-10-PCS; 2016-07-20)
PROC: B2141ZZ Fluoroscopy of Right Heart using Low Osmolar Contrast (ICD-10-PCS; 2016-07-20)
PROC: B244ZZZ Ultrasonography of Right Heart (ICD-10-PCS; 2016-07-20)
PROC: 06PYX3Z Removal of Infusion Device from Lower Vein, External Approach (ICD-10-PCS; 2016-07-20)
PROC: 30233N1 Transfusion of Nonautologous Red Blood Cells into Peripheral Vein, Percutaneous Approach (ICD-10-PCS; 2016-07-20)
DX: A41.9 Sepsis, unspecified organism (principal); G93.41 Metabolic encephalopathy; N18.6 End stage renal disease; E43 Unspecified severe protein-calorie malnutrition; M86.9 Osteomyelitis, unspecified; L97.419 Non-pressure chronic ulcer of right heel and midfoot with unspecified severity; E11.52 Type 2 diabetes mellitus with diabetic peripheral angiopathy with gangrene; I12.0 Hypertensive chronic kidney disease with stage 5 chronic kidney disease or end stage renal disease; E87.6 Hypokalemia; E11.65 Type 2 diabetes mellitus with hyperglycemia; E11.621 Type 2 diabetes mellitus with foot ulcer; E11.40 Type 2 diabetes mellitus with diabetic neuropathy, unspecified; F02.80 Dementia in other diseases classified elsewhere, unspecified severity, without behavioral disturbance, psychotic disturbance, mood disturbance, and anxiety; L97.519 Non-pressure chronic ulcer of other part of right foot with unspecified severity; D63.8 Anemia in other chronic diseases classified elsewhere; E11.22 Type 2 diabetes mellitus with diabetic chronic kidney disease; E11.69 Type 2 diabetes mellitus with other specified complication; G30.9 Alzheimer's disease, unspecified; L97.529 Non-pressure chronic ulcer of other part of left foot with unspecified severity; Z22.322 Carrier or suspected carrier of Methicillin resistant Staphylococcus aureus; Z99.2 Dependence on renal dialysis; Z78.9 Other specified health status; Z93.1 Gastrostomy status; Z68.23 Body mass index [BMI] 23.0-23.9, adult
CPT/HCPCS: 36415; 71010; 75635; 76000; 80048; 80053; 80074; 82272; 82962; 83605; 83735-TC; 83880; 84100-TC; 85007; 85025; 85027; 85610-TC; 85730-TC; 86886; 86900; 86901; 86920; 87040-TC; 87070; 87070-TC; 87075-TC; 87081; 87186-TC; 88305; 88307; 88311; 90935; 90937; 93923; 93970; 99285; C1750; C1751; J0295; J0692; J0696; J0885; J1200; J1450; J1644; J1815; J1956; J2001; J2060; J2250; J2270; J2405; J2543; J2704; J2720; J3370; J3490; J7030; J7050; J7060; P9021; Q9967